=== PATIENT | female | born 1970 | race Caucasian/White ===

== ENCOUNTER → 2018-07-07 10:45 | Inpatient (IN) | payer BC ==
[2018-07-04] VITALS (8 sets, daily range): BP systolic 110–139; BP diastolic 58–78; PULSE 54–82; TEMP 97.2–98.6
[2018-07-05] VITALS (16 sets, daily range): BP systolic 118–138; BP diastolic 59–81; PULSE 37–99; TEMP 96.2–99.6
[2018-07-05 05:57] LABS: HEMATOCRIT 27.6 % (37.0-47.0); HEMOGLOBIN 8.9 g/dl (12.5-16.0)
[2018-07-06 00:55] VITALS: BP 134/74; PULSE 67; TEMP 97.9
[2018-07-06 04:42] VITALS: BP 134/67; PULSE 75; TEMP 98
[2018-07-06 06:31] LABS: HEMATOCRIT 28.3 % (37.0-47.0); HEMOGLOBIN 9.5 g/dl (12.5-16.0)
[2018-07-06 07:43] VITALS: BP 124/65; PULSE 82; TEMP 98
[2018-07-06 11:11] VITALS: BP 137/68; PULSE 71; TEMP 98.2
[2018-07-06 16:14] VITALS: BP 127/66; PULSE 80; TEMP 97.5
[2018-07-06 19:58] VITALS: BP 128/59; PULSE 63; TEMP 98.2
[~2018-07-07] VITALS: Ht 188 cm; Wt 91.8 kg
[2018-07-07 00:40] VITALS: BP 137/48; PULSE 67; TEMP 97.9
[2018-07-07 05:10] VITALS: BP 132/61; PULSE 95; TEMP 98.3
[2018-07-07 07:26] VITALS: BP 131/77; PULSE 91; TEMP 98.1
[~2018-07-07 10:45] MED LIST: ADDERALL XR 10M10 MG PO; ASPIRIN 32325 MG/TA1 PO; CELEBREX 200MG200 MG PO; MOBIC15 MG PO; NORCO 325 MG-7.1 TAB PO; ULTRAM 50MG TAB50 MG PO; VESICARE10 MG PO; ZOFRAN 4MG T4 MG/TAB PO
== END | disposition home or self-care (01) | DRG 462 ==
LOC: JCC 05-18 07:30
PROVIDERS: Orthopaedic Surgery
PROC: 0SRC069 Replacement of Right Knee Joint with Oxidized Zirconium on Polyethylene Synthetic Substitute, Cemented, Open Approach (ICD-10-PCS; 2018-07-04)
PROC: 0SRD069 Replacement of Left Knee Joint with Oxidized Zirconium on Polyethylene Synthetic Substitute, Cemented, Open Approach (ICD-10-PCS; principal; 2018-07-04 07:30)
DX: M17.0 Bilateral primary osteoarthritis of knee (principal); D50.0 Iron deficiency anemia secondary to blood loss (chronic); Z98.84 Bariatric surgery status
CPT/HCPCS: A4314; A9284; C1713; C1776; J0171; J0690; J1100; J1170; J1885; J2250; J2405; J2550; J2704; J3010; J7120; J7121; P9016